=== PATIENT | female | born 1935 | race Caucasian/White ===

== ENCOUNTER 2017-03-25 12:01 | Emergency (ER) | payer MEDICARE, OTHER ==
[~2017-03-25 12:01] MED LIST: ALBUTEROL; ASPIRIN81 M1 PO; ATENOLOL25 M1 PO; CELEXA20 M2 PO; CEPHALEXIN500 M1 PO; CLEOCIN HCL300 M1 PO; COLACE100 M1 PO; DONEPEZIL HCL5 M2 PO; GLYBURIDE MICRON3 MG; HYDROCHLOROTHIA25 MG; LASIX40 M1 PO; LEVOTHYROXINE112 MC3 PO; LISINOPRIL20 M1 PO; METFORMIN HCL500 M2 PO; METFORMIN HCL500 MG; METOPROLOL TART25 M1 PO; MILK OF MAGNESIA PO; MIRALAX17 G2 PO; MULTIVITAMIN1 CAP; NEBULIZER; NIFEDIPINE ER60 MG; NORCO 5-325 TA1 EACH PO; POTASSIUM CHLO10 ME2 PO; PROMETHAZINE12.5 M2 PO; SENNA-S TABLET1 EAC3 PO; SYNTHROID150 MC1 PO; THYROID; TYLENOL325 M2 PO; ULTRAM50 M1 PO
[2017-03-25] MEDS ORDERED: PERCOCET 5-3251 EACH PO (12:28)
[2017-03-25] MEDS ORDERED: TENORMIN25 M1 PO (12:43)
[2017-03-25] MEDS ORDERED: HYDROCODON-ACE1 EA16 PO (12:43)
[2017-03-25] MEDS ORDERED: PRINIVIL20 M1 PO (12:44)
[2017-03-25] MEDS ORDERED: GLUCOPHAGE500 M3 PO (12:44)
[2017-03-25 13:29] LABS: BASO % 0.6 % (0-2); EOS % 1.1 % (0-7); EOSINOPHIL ABSOLUTE COUNT 0.1 tho/cmm (0.0-0.7); HCT-HEMATOCRIT 33.2 % (34.0-49.0); HGB-HEMOGLOBIN 10.4 gm/dl (12.0-15.5); IMMATURE GRANULOCYTES ABSOLUTE 0.01 tho/cmm (0-0.03); IMMATURE GRANULOCYTES PERCENT 0.2 % (0-0.3); LYMPH % 19.5 % (20-45); LYMPH ABSOLUTE COUNT 1.3 tho/cmm (0.8-4.5); MCH (MEAN CORPUSCULAR HGB) 26.7 pg (28.0-32.0); MCHC MEAN CORPUSCULAR HGB CONC 31.3 % (32.0-36.0); MCV (MEAN CELL VOLUME) 85.1 fl (82.0-96.0); MEAN PLATELET VOLUME 9.3 cmc (9.4-12.4); MONO % 12.1 % (0-12); MONOCYTE ABSOLUTE COUNT 0.8 tho/cmm (0.0-1.2); NEUTROPHIL ABSOLUTE COUNT 4.3 tho/cmm (1.6-8.0); NEUTROPHIL-AUTOMATED 4.3 tho/cmm (1.6-8.0); NEUTROPHILS % 66.5 % (40-80); PLATELET COUNT 246 tho/cmm (150-450); RED CELL DISTRIBUTION WIDTH 15.9 % (12.4-16.4); WHITE BLOOD COUNT 6.5 tho/cmm (4.0-10.0)
[2017-03-25] MEDS ORDERED: NYSTOP60 GM EXT (13:48)
[2017-03-25 14:26] LABS: ANION GAP 14 mmol/L (0-20); BLOOD UREA NITROGEN 22 mg/dl (6-24); CALCIUM 9.4 mg/dl (8.5-10.5); CARBON DIOXIDE-VENOUS 27 mmol/L (22-32); CHLORIDE 100 mmol/l (96-110); CREATININE 0.85 mg/dl (0.50-1.10); GLUCOSE 140 mg/dL (70-110); POTASSIUM 3.6 mmol/L (3.7-5.1); SODIUM 137 mmol/L (135-145); eGFR VALUE FOR BLACK 74 mL/Min
[2017-03-25 14:52] LABS: URINE BILIRUBIN SMALL (NEG); URINE BLOOD SMALL (NEG); URINE GLUCOSE (UA) NEGATIVE (NEG); URINE KETONE SMALL (NEG); URINE LEUKOCYTE ESTERASE POSITIVE (NEG); URINE NITRITE NEGATIVE (NEG); URINE PROTEIN MODERATE (NEG); URINE SPECIFIC GRAVITY 1.025 (1.003-1.030)
[2017-03-25 14:53] LABS: URINE APPEARANCE HAZY; URINE COLOR YELLOW
[2017-03-25 15:00] LABS: URINE AMORPHOUS 1+; URINE MUCUS 2+; URINE RBC 0 /[HPF] (0-5)
== END 2017-03-25 16:53 ==
LOC: EDMED 12:01
PROVIDERS: Emergency Medicine
DX: F03.90 Unspecified dementia, unspecified severity, without behavioral disturbance, psychotic disturbance, mood disturbance, and anxiety (principal); R29.6 Repeated falls; I10 Essential (primary) hypertension; E03.9 Hypothyroidism, unspecified; Z90.710 Acquired absence of both cervix and uterus; Z79.82 Long term (current) use of aspirin